=== PATIENT | male | born 1950 | race Caucasian/White ===

== ENCOUNTER 2019-03-05 18:38 | Inpatient (IN) | payer OTHER ==
[2019-03-05] MEDS ORDERED: ASPIRIN 81 MG CHEWABLE TAB PO ONE (18:39)
[2019-03-05] MEDS ORDERED: NS 1,000 ML IV ONE (18:39)
[2019-03-05] MEDS ORDERED: NITROGLYCERIN 0.4 MG BTL SL PRN ×2 (18:39→21:10)
--- NOTE | 2019-03-05 18:40 | EDPHY ---
H & P Time Seen by Provider: 03/05/19 18:40 HPI/ROS: HPI CHIEF COMPLAINT: Exertional chest pain. HISTORY OF PRESENT ILLNESS: This is a 68-year-old male, he has a history of hypertension, hyperlipidemia, obesity, presents emergency room with exertional chest pain. He states for the past few months he has noticed exertional chest discomfort. Describes it as a pressure sensation substernal not radiating anywhere. It is worse when he exerts himself. However over the last month he has noticed increasing exertional chest discomfort. Now to the point where it is constant her any time he goes walks up stairs. He denies any jaw pain, denies any back pain, denies any arm pain. He does have some dyspnea on exertion with this. No pleuritic pain. He went to his primary care doctor's office today who did an EKG and he was sent here to the emergency room for further evaluation. He arrives to the emergency room does have some slight 3/10 chest pressure. Past Medical History: Hypertension, hyperlipidemia, obesity Past Surgical History: Appendectomy Social History: Daily nightly wine, denies tobacco or drugs. Family History: Extensive cardiac disease in his family with an AL in his dad his age. ROS REVIEW OF SYSTEMS: 10 Systems were reviewed and negative with the exception of the elements mentioned in the history of present illness. Exam Constitutional triage nursing summary reviewed, vital signs reviewed, awake/ alert. Eyes normal conjunctivae and sclera, EOMI, PERRLA. HENT normal inspection, atraumatic, moist mucus membranes, no epistaxis, neck supple/ no meningismus, no raccoon eyes. Respiratory clear to auscultation bilaterally, normal breath sounds, no respiratory distress, no wheezing. Cardiovascular rate normal, regular rhythm, no murmur, no edema, distal pulses normal. Gastrointestinal soft, non-tender, no rebound, no guarding, normal bowel sounds, no distension, no pulsatile mass. Genitourinary no CVA tenderness. Musculoskeletal no midline vertebral tenderness, full range of motion, no calf swelling, no tenderness of extremities, no meningismus, good pulses, neurovascularly intact. Skin pink, warm, & dry, no rash, skin atraumatic. Neurologic awake, alert and oriented x 3, AAOx3, moves all 4 extremities equally, motor intact, sensory intact, CN II-XII intact, normal cerebellar, normal vision, normal speech. Psychiatric normal mood/affect. Heme/Lymph/Immune no lymphadenopathy. Differential Diagnosis: Differential diagnosis includes but is not limited to: ACS, atypical chest pain, pneumothorax, pneumonia, pulmonary embolism, aortic dissection, congestive heart failure, tumor, musculoskeletal pain, esophageal pain, GERD, peptic ulcer disease, pancreatitis Medical Decision Making: Plan for this patient IV establishment cardiac surgeon obtain EKG, troponin, electrolytes, chest x-ray, rule out acute coronary syndrome. Re-evaluation: EKG interpretation by me on record in [facility] system. Impression time of EKG 1847, sinus rhythm rate of 76, abnormal ischemic T-waves in leads V1 V2 V3 V4. Subtle in V5 slight ST depression in V2 V3. No ST elevation. Plan for this patient full cardiac surgeon, IV establishment, full-dose aspirin , nitroglycerin, admit to [facility]. 1903: Dr. Myles Consulted. Ekg for him to evaluate. Ekg has ischemic T waves, (?wellens) 1908: Spoke with Dr. Myles, agrees ekg is concerning, would not activate laboratory phlebotomist. Would admit to hospalist service. Admit for further cardiac eval. Plan for cardiac cath in am. Plan for heparin drip. Plan for admission to the hospitalist service PCU. Patient re-evaluated 1916 he was given 1 dose of nitroglycerin and full-dose aspirin. Is now without chest pain. Chest pain-free after nitroglycerin. Trop 0.01 Patient accepted at [facility] Dr. Camarillo Patient agrees for transfer. Repeat EKG: Time of EKG 1929, sinus rhythm again seen T-wave abnormalities V1 V2 V3 V4. No ST elevation. Similar previous EKG. Source: Patient - Medical/Surgical History Hx Diabetes: No - Social History Smoking Status: Former smoker Constitutional: Initial Vital Signs O2 Sat (%) 97 03/05/19 18:39 O2 Delivery Mode Room Air O2 (L/minute) 2 Allergies/Adverse Reactions: silicone Allergy (Verified 03/05/19 18:53) Rash Sulfa (Sulfonamide Antibiotics) Allergy (Verified 03/05/19 18:53) Anaphylaxis Home Medications: Medication Instructions Recorded Lisinopril [Zestril 20 mg (*)] 20 mg PO DAILY 03/24/16 Simvastatin [Zocor] 20 mg PO HS 03/24/16 Medical Decision Making - Data Points Medications Given: Aspirin (Aspirin) 325 mg PO DAILY [facility] Stop: 09/02/19 08:59 Last Admin: 03/06/19 08:31 Dose: Not Given Lisinopril (Zestril) 20 mg PO DAILY [facility] Stop: 09/02/19 08:59 Last Admin: 03/06/19 08:31 Dose: 20 mg Nitroglycerin (Nitrostat) 0.4 mg SL Q5M PRN PRN Reason: Chest Pain Last Admin: 03/05/19 19:04 Dose: 0.4 mg Discontinued Medications Aspirin (Aspirin) 324 mg PO EDNOW ONE Stop: 03/05/19 18:40 Last Admin: 03/05/19 19:03 Dose: 324 mg Aspirin Buffered (Aspirin Ec) 325 mg PO ONCALL ONE Stop: 03/06/19 08:13 Last Admin: 03/06/19 08:31 Dose: 325 mg Diazepam (Valium) 5 mg PO ONCALL ONE Stop: 03/06/19 08:13 Last Admin: 03/06/19 08:31 Dose: 5 mg Diphenhydramine HCl (Benadryl) 25 mg PO ONCALL ONE Stop: 03/06/19 08:13 Last Admin: 03/06/19 08:31 Dose: 25 mg Famotidine (Pepcid) 20 mg PO ONCALL ONE Stop: 03/06/19 08:13 Last Admin: 03/06/19 08:31 Dose: 20 mg Heparin Sodium (Porcine) (Heparin Injection) 0 unit IVP EDNOW ONE Stop: 03/05/19 19:09 Last Admin: 03/05/19 20:37 Dose: 4,000 units Sodium Chloride (Ns) 1,000 mls @ 0 mls/hr IV EDNOW ONE; Wide Open PRN Reason: Protocol Stop: 03/05/19 18:40 Last Admin: 03/05/19 19:02 Dose: 1,000 mls Heparin Sodium (Porcine) (Heparin 50 Units/Ml (Premix)) 500 mls @ 0 mls/hr IV EDNOW ONE; Per Protocol PRN Reason: Protocol Stop: 03/05/19 19:09 Last Admin: 03/05/19 20:49 Dose: 500 mls Lactated Ringer's (Lr) 1,000 mls @ 0 mls/hr IV ONCE ONE PRN Reason: KVO Stop: 03/06/19 12:57 Last Admin: 03/06/19 13:08 Dose: 1,000 mls Mupirocin (Bactroban 2%) 1 chad NS ONCE ONE Stop: 03/06/19 11:59 Last Admin: 03/06/19 13:04 Dose: 1 applic Point of Care Test Results: CBC CBC Collection Date 03/05/19 CBC Collection Time 18:51 WBC 6.86 RBC 4.61 HGB 16.1 HCT 46.4 PLT 176 Neut # 3.2 Neut 46.6 LYMPH # 2.54 LYMPH 37.0 MCV 100.7 Chemistry 03/05/19 03/05/19 18:56 18:54 POC Sodium 142 mEq/L mEq/L (135-145) POC Potassium 3.8 mEq/L mEq/L (3.3-5.0) POC Chloride 102.0 mEq/L mEq/L (97-110) POC Total CO2 26 mEq/L mEq/L (22-31) POC BUN 10 mg/dL mg/dL (7-23) POC Creatinine 0.6 mg/dL L mg/dL (0.7-1.3) POC Glucose 79 mg/dL mg/dL (70-100) POC Calcium 9.6 mg/dL mg/dL (8.5-10.4) POC Total Bilirubin 0.9 mg/dL mg/dL (0.1-1.4) POC AST 49 IU/L IU/L (17-59) POC ALT 39 IU/L IU/L (21-72) POC Alk Phosphatase 84 IU/L IU/L (38-126) POC Troponin I 0.01 ng/mL ng/mL (0.00-0.08) POC Total Protein 8.0 g/dL g/dL (6.3-8.2) POC Albumin 4.0 g/dL g/dL (3.5-5.0) Departure - Departure Disposition: [facility] Inpatient Acute Clinical Impression: Abnormal EKG Chest pain Qualifiers: Chest pain type: unspecified Qualified Code(s): R07.9 - Chest pain, unspecified Condition: Serious
[2019-03-05] MEDS: HEPARIN/DEXTROSE 500 ML IV ONE ×2 (19:41→20:49)
[2019-03-05] MEDS: HEPARIN 10,000 UNIT/10 ML MDV (1,000 UNIT/ML) IVP ONE ×2 (19:42→20:37)
[2019-03-05 20:44] LABS: INR 1.05 (0.83-1.16); PROTIME(PATIENT) 13.3 SEC (12.0-15.0)
[2019-03-05] MEDS ORDERED: ONDANSETRON DISINTEGRATING 4 MG TAB PO PRN (21:10)
[2019-03-05] MEDS ORDERED: ONDANSETRON 4 MG/2 ML VIAL IVP PRN (21:10)
[2019-03-05] MEDS ORDERED: ACETAMINOPHEN 325 MG TAB PO PRN (21:10)
--- NOTE | 2019-03-05 21:40 | PDGENHP ---
History and Physical - Chief Complaint chest pain - History of Present Illness 68 yo M with PMH of HTN, HLD, morbid obesity presenting with c/o chest pain for the last 4-5 months. Patient notes that he has had sxs that he believed were related to indigestion with substernal chest pressure occurring with exertion for months. He notes that it initially was only with relatively significant exertion, but would occur predictably anytime he exerted himself. Over the last several weeks it has begun occurring with less and less severe exertion, currently now occurs even with exertion as little as sitting up from lying down. He notes about 3 weeks ago he and his went to [place] and while there he was feeling much more fatigued than normal but at one time shortly after walking he developed this similar chest discomfort substernally but this time it was much more severe and associated with radiation to his left shoulder and arm, diaphoresis and a sense of doom. He sat for several hours and it finally subsided. He did not tell his how severe this episode was and did not seek care at that time. Today he presented to his PCP Dr. Marmolejo for evaluation of this and his PCP performed an ECG which was concerning for ischemia and he was sent to ER for further evaluation. He currently denies pain while at rest, but did sit up for me to listen to his lungs and the pain briefly returned. He notes he has also had swelling in his legs for quite some time and that is unchanged. He is normally very sedentary. History Information - Allergies/Home Medication List Allergies/Adverse Reactions: silicone Allergy (Verified 03/05/19 18:53) Rash Sulfa (Sulfonamide Antibiotics) Allergy (Verified 03/05/19 18:53) Anaphylaxis Home Medications: Lisinopril [Zestril 20 mg (*)] 20 mg PO DAILY 03/24/16 [Last Taken 03/05/19] Simvastatin [Zocor] 20 mg PO HS 03/24/16 [Last Taken 03/04/19] I have personally reviewed and updated: family history, medical history, social history, surgical history - Past Medical History hypertension, hyperlipidemia Additional medical history: morbid obesity - Surgical History Reports: appendectomy - Family History Positive for: CAD (father of [place] at 67, grandfather of [place]) - Social History Smoking Status: Current some day smoker Tobacco Use: Cigar (about 1x/month) Alcohol Use: Other (drinks daily 2 or more drinks, no hx of withdrawal, has cut down before w/o issues) Drug Use: None Additional social history: , 2 sons Review of Systems Review of Systems: ROS: 10pt was reviewed & negative except for what was stated in HPI & below Physical Exam Physical Exam: Temp Pulse Resp BP Pulse Ox 36.8 C 70 18 154/78 H 97 03/05/19 21:17 03/05/19 21:17 03/05/19 21:17 03/05/19 21:17 03/05/19 21:17 O2 (L/minute) 2 Constitutional: not in pain, obese Eyes: PERRL, anicteric sclera Ears, Nose, Mouth, Throat: moist mucous membranes, hearing normal Cardiovascular: regular rate and rhythym, no murmur, rub, or gallop, edema (1-2 + BLE to knees) Respiratory: no respiratory distress, no rales or rhonchi Gastrointestinal: normoactive bowel sounds, soft, non-tender abdomen Genitourinary: no bladder tenderness Skin: warm, normal color Musculoskeletal: full muscle strength Neurologic: AAOx3 Psychiatric: interacting appropriately, not anxious, not encephalopathic Lab Data & Imaging Review PT 13.3 SEC (12.0-15.0) 03/05/19 19:08 INR 1.05 (0.83-1.16) 03/05/19 19:08 APTT 32.4 SEC (23.0-38.0) 03/05/19 19:08 POC Sodium 142 mEq/L (135-145) 03/05/19 18:56 POC Potassium 3.8 mEq/L (3.3-5.0) 03/05/19 18:56 POC Chloride 102.0 mEq/L (97-110) 03/05/19 18:56 POC Total CO2 26 mEq/L (22-31) 03/05/19 18:56 POC BUN 10 mg/dL (7-23) 03/05/19 18:56 POC Creatinine 0.6 mg/dL (0.7-1.3) L 03/05/19 18:56 POC Glucose 79 mg/dL (70-100) 03/05/19 18:56 POC Calcium 9.6 mg/dL (8.5-10.4) 03/05/19 18:56 POC Total Bilirubin 0.9 mg/dL (0.1-1.4) 03/05/19 18:56 POC AST 49 IU/L (17-59) 03/05/19 18:56 POC ALT 39 IU/L (21-72) 03/05/19 18:56 POC Alk Phosphatase 84 IU/L (38-126) 03/05/19 18:56 POC Troponin I 0.01 ng/mL (0.00-0.08) 03/05/19 18:54 NT-Pro-B Natriuret Pep 45 pg/mL (0-125) 03/05/19 18:40 POC Total Protein 8.0 g/dL (6.3-8.2) 03/05/19 18:56 POC Albumin 4.0 g/dL (3.5-5.0) 03/05/19 18:56 Visualized and Interpreted Chest x-ray results: Yes Chest X-Ray results: no infiltrate Visualized and Interpreted EKG results: Yes EKG Interpretation: Positive for: ST depression (V3, V4, V5), T waves inversion Assessment & Plan Assessment: Chest pain (Acute) Abnormal EKG (Acute) 68 yo M hx of HTN, HLD, morbid obesity presenting with several months of exertional chest pain concerning for unstable angina # unstable angina: hx concerning for unstable angina given exertional chest pain that has been occurring with less and less exertion and ischemic ECG. Cardiology has been consulted and plans for cath in am. Currently chest pain free, will monitor on tele, serial trops and ecg, prn nitro. # HTN: currently appears poorly controlled however patient reports it is generally well controlled, will continue home lisinopril and monitor # HLD: continue statin, lipid panel in am # morbid obesity: counseled regarding lifestyle modification and exercise # observation status Patient new to my care. Old records reviewed and summarized as above. Further hx obtained from patients family present at bedside, care plan including plan for cath in am reviewed with ER doctor.
[2019-03-05] MEDS ORDERED: HEPARIN 10,000 UNIT/10 ML MDV (1,000 UNIT/ML) IVP PRN (23:19)
[2019-03-05] MEDS ORDERED: HEPARIN/DEXTROSE 500 ML IV SCH (23:30)
[2019-03-06] MEDS ORDERED: HEPARIN 10,000 UNIT/10 ML MDV (1,000 UNIT/ML) IVP PRN (00:32)
[2019-03-06] MEDS ORDERED: diphenhydrAMINE 25 MG CAP PO ONE (08:12)
[2019-03-06] MEDS ORDERED: TEMAZEPAM 15 MG CAP PO PRN (08:12)
[2019-03-06] MEDS ORDERED: ASPIRIN EC 325 MG TAB PO ONE (08:12)
[2019-03-06] MEDS ORDERED: FAMOTIDINE 20 MG TAB PO ONE (08:12)
[2019-03-06] MEDS ORDERED: DIAZEPAM 5 MG TAB PO ONE (08:12)
[2019-03-06] MEDS ORDERED: NS 1,000 ML IV SCH ×2 (08:15→18:15)
[2019-03-06 08:45] LABS: PLATELET COUNT 169 10^3/uL (150-400)
[2019-03-06] MEDS ORDERED: ASPIRIN 325 MG TAB PO SCH (09:00)
[2019-03-06] MEDS ORDERED: LISINOPRIL 20 MG TAB PO SCH (09:00)
--- NOTE | 2019-03-06 09:21 | GCON ---
[f rep st] CONSULTATION CARDIOLOGY CONSULTATION SUPERVISING SAAS ARCHITECT: Phu Lu MD INDICATION FOR CARDIOLOGY CONSULTATION: Exertional chest pain, concern for unstable angina. REQUESTING PHYSICIAN FOR CONSULTATION: Dr. Vimal Camarillo of [facility]. HISTORY OF PRESENT ILLNESS: The patient is a 68-year-old male, whose primary care is Dr. Marmolejo. Danny castro has significant past history that includes prediabetes, hypertension, hyperlipidemia, DON, and obes ity. Patient informs me since the beginning of this year, he has been noticing mild midsternal chest pressure, starting as faint, initially only starting with significant exertion, which dissipated. Danny castro does report over the last month the symptoms have worsened, stating that he now has a constant mild midsternal chest pressure, and with any exertion, it does significantly increase, does usually go aw ay. It has been noted to be occasionally associated with shortness of breath. He does inform me chad roximately 3 weeks ago, he was in [place], on vacation, he woke up in the morning, feeling significant ly fatigued, midsternal chest pressure, with radiation into his left arm, his checked his blood pressure at that time, reporting significant elevation, he was noted to have mild sweatiness and naus ea. He does report he did not seek medical treatment, but stated in about an hour and a half to 2 ho urs, symptoms dissipated. He reports he has had no extreme event since then, but does report ongoing exertional chest pressure. He did see Dr. Marmolejo last evening, his PCP, and had recommended him to come to the emergency department for further evaluation. Upon arrival, laboratory studies were draw n, he was noted to have a negative troponin of 0.01. Electrocardiogram was also done which noted to be sinus rhythm, leftward axis, with inverted T-waves in the anterior leads. He was admitted to the PCU for overnight. He has been started on a heparin drip. At the time of my examination, he reports he has still a mild heaviness, reporting midsternal, but rating at less than 1/10. Currently he den ies any shortness of breath. He reports no orthopnea, PND, lightheadedness, near-syncope, or syncopa l events. He does report he has chronic peripheral edema and feels that this has not worsened. He d enies any recent fevers, chills, or night sweats. Denies any bleeding issues. He has significant ca ia risk factors that include age, sex, hypertension, hyperlipidemia, prediabetes, family history o f coronary artery disease, which he reports father dying of an ME at age 67. PAST MEDICAL HISTORY: Patient with significant past medical history that includes DON in which he is on CPAP, hypertension, hyperlipidemia, and prediabetes. PAST SURGICAL HISTORY: Includes appendectomy,and spine surgery. FAMILY HISTORY: Patient reporting father of an ME at age 67. He also reports grandfather asa CARRIZALES. 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 He is . He has 2 children. He occasionally uses alcohol. He does state that he smokes 1 cigar a week but has never been a cigarette smoker. He has 2 children who are both alive and well. He does live a very s edentary lifestyle. ALLERGIES: Patient with known history of allergies to silicone and sulfa. MEDICATIONS: At home, include simvastatin 20 mg p.o. h.s., and lisinopril 20 mg p.o. daily. REVIEW OF SYSTEMS: A 10-point review of systems done on this patient all negative except as mentione d above. PHYSICAL EXAMINATION: GENERAL APPEARANCE: Morbidly obese, male. He is alert and oriented to person, place, time, and situation. Appears to be under no acute distress at the time of my exam ination. VITAL SIGNS: Current blood pressure is 153/80, heart rate of 64, respirations 16, saturati ng 95% on 2 L nasal cannula. Temperature at 36.9 degrees Celsius. HEENT: Head is normocephalic. L ips and tongue are pink and moist with no signs of cyanosis. Conjunctivae pink. NECK: Trachea is m idline, +2 carotid pulses bilateral. No auscultated bruits. No jugular vein distention. RESPIRATOR Y: Lungs are clear to auscultation, no rhonchi, rales, wheezes, no accessory muscle use. No interco stal muscle retraction noted. CARDIAC: Regular rate, regular rhythm, S1, S2, 1/6 systolic murmur no tavo along left sternal border. ABDOMEN: Soft, obese, nontender, bowel sounds x4 quadrants, no organ omegaly, no palpable masses. SKIN: [place], warm, dry, no cyanosis, no clubbing, +1 peripheral edema, bilateral lower extremities to knees. VASCULAR: +2 carotids bilateral, +2 radials bilateral, +1 saman truman pedal and posterior tibial pulses bilateral. LABORATORY STUDIES: Laboratory studies drawn last evening show an INR of 1.05, sodium of 142, potass ium 3.8, chloride 102, CO2 26, BUN 10, creatinine 0.6, glucose 79, calcium 9.6, total bilirubin 0.9, AST 49, ALT 39, alkaline phosphate 84, troponin of 0.01. ProBNP of 45. Total protein 8.0, albumin 4 .0. Laboratory studies drawn today showing troponin level less than 0.012. Triglycerides 61, total cholesterol 153, LDL of 71, HDL of 70. STUDIES: Electrocardiogram as mentioned above. Chest x-ray, showing no acute pulmonary disease. ASSESSMENT AND PLAN: 1. Chest pain: Concern patient reporting ongoing chest pain for last 3 months, worsening in the las t 3 weeks. Exertion, but does not sound like he has had a few symptoms at rest. Concerning that thi s potentially is unstable angina, with electrocardiogram changes. Given his multiple cardiac risk fa ctors, it is felt best that the patient be further evaluated by coronary angiogram. Risks and benefi ts of this procedure were explained to both him and his . They verbalize understanding. He will be taken urgently to the cardiac catheterization lab today, procedure performed by Dr. Lu. The patient has been started on antiplatelet therapy of aspirin, he is currently on heparin drip. [facility] er recommendations post angiogram. 2. Hypertension: Patient with noted history of hypertension, blood pressure is mildly elevated this morning, he has been resumed on home dosage of lisinopril. Pending results of angiogram, we made ad d medications pending results. 3. Hyperlipidemia: Patient noted history of hyperlipidemia, fasting lipid panel does show adequate suppression of the LDL, will continue on current dose of statin therapy. 4. Obstructive sleep apnea: Patient is using his home continuous positive airway pressure therapy. 5. Morbid obesity: We have discussed the significant importance of weight loss. Thank you for this consultation. We will be glad to follow along with you. Again, further recommend ations will come post angiogram. /[id number]/MODL
[2019-03-06] MEDS ORDERED: IOPAMIDOL (ISOVUE-370) 150 ML BTL IV ONE (09:26)
[2019-03-06] MEDS ORDERED: LIDOCAINE 1% 300 MG/30 ML SDV ONE ×2 (09:26→10:01)
[2019-03-06] MEDS ORDERED: fentaNYL 100 MCG/2 ML INJ ONE ×3 (09:26→12:38)
[2019-03-06] MEDS ORDERED: MIDAZOLAM 2 MG/2 ML VIAL ONE (09:26)
--- NOTE | 2019-03-06 09:43 | PDPROPOC ---
Sedation Plan of Care Sedation Plan of Care: mental status noted, patient educated of risks, benefits , alternatives, patient can tolerate sedation ASA Classification: ASA 3 Planned drugs: fentanyl, midazolam Mallampati Score: Class 3 Mallampati Reference Image: Patient passed 3-3-2 rule?: Yes
--- NOTE | 2019-03-06 09:43 | PDHPUP ---
History & Physical Update H&P update statement: This history and physical update is based on an assessment of the patient which was completed after admission or registration (within 24 hours), but prior to the surgery/procedure. H&P update: H&P reviewed & patient examined, no change in patient's condition since H&P completed
--- NOTE | 2019-03-06 09:51 | ECHO ---
[email or web address] [address] Main: [phone] Echocardiography Examination Transthoracic Name: NEENA SHEPHERD MR#: [id number] Study Date: 03/06/2019 Study Time: 08:51 AM Date of : 1950 Age: 68 year(s) Height: 175.3 cm (69 in.) Weight: 151.96 kg (335 lb.) BSA: 2.57 m2 Gender: Male Examination: Echo Contrast: Image Quality: Adequate Rhythm: Heart Rate: BP: / Indication: cp and SOB Procedure Staff Referring Physician: Feather Duster Winder: Aliyah Herrera RDCS Reading Physician: Phu Lu MD Requesting Provider: Ordering Physician: Sam Bunn NP Indication: cp and SOB Measurements Chambers AV/MV Label Value Normal Value Label Value Normal Value LVOTd 2.2 cm (1.9cm - 2.1cm) AV PGmax 9 mmHg LVOT VTI 23.6 cm (18cm - 22cm) AV PGmean 6 mmHg LVDd, 2D 5.3 cm (4.2cm - 5.9cm) AV Vmax 1.47 m/s LVDs, 2D 3.7 cm (2.1cm - 4cm) RAINER (VTI) 2.8 cm2 IVSd, 2D 1.1 cm (0.6cm - 1.1cm) MV E Vmax 0.61 m/s LVPWd, 2D 1.2 cm (0.6cm - 1cm) MV A Vmax 0.84 m/s LVEF, BP 63 % (55% - 70%) MV E/A 0.73 LVEF, 2D 57 % (54% - 74%) MV E/E' lateral 6.2 LVOT PGmean 3 mmHg MV E/E' septal 9.7 (0.45 - 1.25) LVOT Vmean 0.76 m/s MV DT 282 ms RVDd, 2D 3.4 cm (1.9cm - 3.8cm) MV E' septal 0.06 m/s LA Volume, BP 70 ml (18ml - 58ml) MV PHT 0.08 s LADs, 2D 3.7 cm (3cm - 4cm) MVA PHT 2.7 cm2 LAESV index, BP 27.2 ml/m2 MV E' lateral 0.1 m/s Additional Vessels MV E/E' mean 7.62 Label Value Normal Value MV PHT 82 ms AoAsc 3.8 cm MV E' mean 0.08 m/s AoRoot, 2D 3.6 cm (1.4cm - 2.6cm) TV/PV Label Value Normal Value Patient: NEENA SHEPHERD Study Date: 03/06/2019 Page 1 of 3 08:51 AM PV PGmax 2 mmHg PV Vmax, Caliper 0.75 m/s (0.6m/s - 0.9m/s) Conclusions Technically difficult due to body habitus, limited windows. Left Ventricle: EF range is estimated at 60 % - 65 %. Mitral Valve: Mitral valve appears structurally normal. Aortic Valve: Aortic valve not well visualized. Tricuspid Valve: Technically difficult assessment of tricuspid regurgitation. Findings Technically difficult due to body habitus, limited windows. Left Ventricle: Left ventricle is normal in size. Normal global systolic left ventricular function. The ejection fraction, measured by Simpsons method, is 63 %. EF range is estimated at 60 % - 65 %. There is mild concentric left ventricular hypertrophy. There are no regional wall motion abnormalities. Left ventricular diastolic function parameters are normal. Right Ventricle: Normal size right ventricle. Right ventricular systolic function is normal. Left Atrium: The left atrium is normal in size. Right Atrium: The right atrium is normal in size. Mitral Valve: Mitral valve appears structurally normal. Technically difficult assessment of mitral regurgitation. No mitral valve stenosis. Aortic Valve: Aortic valve not well visualized. Technically difficult assessment of aortic valve regurgitation. There is no aortic stenosis. Tricuspid Valve: Tricuspid valve leaflets are structurally normal. Technically difficult assessment of tricuspid regurgitation. Pulmonary artery pressure cannot be assessed due to inadequate TR signal. Pulmonic Valve: Pulmonic valve not well visualized. Aorta: The aortic root size in 2D measures 3.6 cm. The ascending aorta measures 3.8 cm. Aorta Measurements AoRoot, 2D is 3.6 cm. Pericardium: Subcostal technically difficult. No pericardial effusion. Exam Details Procedure Ordered: Echo Procedure Status: Routine study Image Quality: Adequate Facility Location: Cardiac Echo 1 Patient: NEENA SHEPHERD Study Date: 03/06/2019 Page 2 of 3 08:51 AM (No Signature Object) Patient: NEENA SHEPHERD Study Date: 03/06/2019 Page 3 of 3 08:51 AM [id number]
[2019-03-06] MEDS ORDERED: HYDROCODONE/APAP 5/325 TAB PO PRN (10:51)
[2019-03-06] MEDS ORDERED: ATROPINE SULFATE 1 MG/10 ML SYR IVP PRN (10:51)
[2019-03-06] MEDS ORDERED: HEPARIN/DEXTROSE 500 ML IV SCH (11:15)
--- NOTE | 2019-03-06 11:46 | ASMTCMCOM ---
CM Note CM Note Notes: Pt is a 68 y/o man admitted for a CABG. Needs are TBD at this time. CM to follow. Plan: TBD Date Signed: 03/06/2019 11:46 AM Electronically Signed By:CHELA Ling
[2019-03-06] MEDS ORDERED: LIDOCAINE 1% 2 ML INJ ID PRN (11:58)
[2019-03-06] MEDS ORDERED: MUPIROCIN 2% 22 GM OINT NS ONE (11:58)
[2019-03-06] MEDS ORDERED: MANNITOL 25% 12.5 GM/50 ML VIAL IVP ONE (11:58)
[2019-03-06] MEDS ORDERED: CITRATE DEXTROSE SOLN 500 ML BAG MISC ONE (11:58)
[2019-03-06] MEDS ORDERED: CARDIOPLEGIC SOLUTION 1,052.8 ML PF ONE (11:58)
[2019-03-06] MEDS ORDERED: ceFAZolin 3 GM in D5W 100 ML IV ONE (11:58)
[2019-03-06] MEDS ORDERED: AMINOCAPROIC ACID 5 GM/20 ML VIAL IV ONE (11:58)
[2019-03-06] MEDS ORDERED: NS 1,000 ML IV ONE (11:58)
[2019-03-06] MEDS ORDERED: NOREPINEPHRINE BITARTRATE 16 MG in NS 250 ML IV ONE (11:58)
[2019-03-06] MEDS ORDERED: VERAPAMIL 5 MG, NITROGLYCERIN 2.5 MG, HEPARIN 500 UNIT, SODIUM BICARBONATE 0.2 MEQ in L... MISC ONE (11:58)
[2019-03-06] MEDS ORDERED: PHENYLEPHRINE HCL 50 MG in NS 250 ML IV ONE (11:58)
[2019-03-06] MEDS ORDERED: INSULIN REGULAR HUMAN 100 UNIT in NS 100 ML IV ONE (11:58)
[2019-03-06] MEDS ORDERED: PROTAMINE SULFATE 50 MG/5 ML VIAL IVP ONE (12:01)
[2019-03-06] MEDS ORDERED: CALCIUM CHLORIDE 1 GM/10 ML INJ ONE ×2 (12:02→12:03)
[2019-03-06] MEDS ORDERED: NA BICARBONATE 50 MEQ/50 ML VIAL ONE (12:02)
[2019-03-06] MEDS ORDERED: ceFAZolin 1 GM VIAL ONE (12:02)
[2019-03-06] MEDS ORDERED: AMIODARONE HCL 150 MG/3 ML VIAL ONE ×2 (12:02→12:04)
[2019-03-06] MEDS ORDERED: ADENOSINE 6 MG/2 ML VIAL ONE (12:02)
[2019-03-06] MEDS ORDERED: niCARdipine/NACL/200 ML BAG IV ONE (12:02)
[2019-03-06] MEDS ORDERED: AMINOCAPROIC ACID 5 GM/20 ML VIAL ONE ×2 (12:02→12:03)
[2019-03-06] MEDS ORDERED: MILRINONE/DEXTROSE/100 ML BAG IV ONE (12:02)
[2019-03-06] MEDS ORDERED: NITROGLYCERIN/D5W 50 MG/250 ML BOTTLE IV ONE (12:02)
[2019-03-06] MEDS ORDERED: DOPamine/DEXTROSE 400 MG/250 ML BAG IV ONE (12:02)
[2019-03-06] MEDS ORDERED: HEPARIN 10,000 UNIT/10 ML MDV (1,000 UNIT/ML) ONE ×2 (12:02→12:03)
[2019-03-06] MEDS ORDERED: ALBUMIN 5% 250 ML BOTTLE IV ONE ×3 (12:03→23:20)
[2019-03-06] MEDS ORDERED: LIDOCAINE 2% 100 MG/5 ML SYR ONE (12:03)
[2019-03-06] MEDS ORDERED: SODIUM BICARBONATE 50 MEQ/50 ML SYR ONE (12:03)
[2019-03-06] MEDS ORDERED: MAGNESIUM SULFATE 1 GM/2 ML VIAL ONE (12:04)
[2019-03-06] MEDS ORDERED: CITRATE DEXTROSE SOLN 500 ML BAG ONE (12:04)
[2019-03-06] MEDS ORDERED: methylPREDNISolone SOD SUCC 1 GM/8 ML VIAL ONE (12:04)
[2019-03-06] MEDS ORDERED: MIDAZOLAM 2 MG/2 ML VIAL IVP ONE (12:29)
--- NOTE | 2019-03-06 12:29 | PDANEPAE ---
ANE History of Present Illness 68 yo for urgent cabg ANE Past Medical History - Cardiovascular History Hx Hypertension: Yes Hx Arrhythmias: No Hx Chest Pain: Yes Hx Coronary Artery / Peripheral Vascular Disease: Yes Hx CHF / Valvular Disease: No Hx Palpitations: No - Pulmonary History Hx COPD: No Hx Asthma/Reactive Airway Disease: No Hx Recent Upper Respiratory Infection: No Hx Oxygen in Use at Home: No Hx Sleep Apnea: Yes Sleep Apnea Screening Result - Last Documented: Positive Pulmonary History Comment: CPAP FOR DON - Neurologic History Hx Cerebrovascular Accident: No Hx Seizures: No Hx Dementia: No - Endocrine History Hx Diabetes: No - Renal History Hx Renal Disorders: No - Liver History Hx Hepatic Disorders: No - Neurological & Psychiatric Hx Hx Neurological and Psychiatric Disorders: No - Cancer History Hx Cancer: No - Congenital Disorder History Hx Congenital Disorders: No - GI History Hx Gastrointestinal Disorders: No - Other Health History Other Health History: HIGH CHOLESTEROL. MISSING TEETH - Chronic Pain History Chronic Pain: No - Surgical History Prior Surgeries: APPY. LYSIS OF ADHESION ANE Review of Systems Review of Systems: - Exercise capacity METS (RN): 3 METS ANE Patient History - Allergies Allergies/Adverse Reactions: silicone Allergy (Verified 03/05/19 18:53) Rash Sulfa (Sulfonamide Antibiotics) Allergy (Verified 03/05/19 18:53) Anaphylaxis - Home Medications Home Medications: Lisinopril [Zestril 20 mg (*)] 20 mg PO DAILY 03/24/16 [Last Taken 03/05/19] Simvastatin [Zocor] 20 mg PO HS 03/24/16 [Last Taken 03/04/19] - NPO status NPO Status: no food or drink >8 hours NPO Since - Liquids (Date): 03/06/19 NPO Since - Liquids (Time): 00:00 NPO Since - Solids (Date): 03/06/19 NPO Since - Solids (Time): 00:00 - Anes Hx Anes Hx: no prior problems - Smoking Hx Smoking Status: Current some day smoker - Alcohol Use Alcohol Use: Other (drinks daily 2 or more drinks, no hx of withdrawal, has cut down before w/o issues) ANE Labs/Vital Signs - Labs Result Diagrams: 03/06/19 08:37 - Vital Signs Blood Pressure: 153/80 Heart Rate: 64 Respiratory Rate: 16 O2 Sat (%): 95 Height: 5 ft 9 in Weight: 151.953 kg ANE Physical Exam - Airway Neck exam: FROM Mallampati Score: Class 2 Mouth exam: normal dental/mouth exam - Pulmonary Pulmonary: no respiratory distress - Cardiovascular Cardiovascular: regular rate and rhythym - ASA Status ASA Status: IV, E ANE Anesthesia Plan Anesthesia Plan: general endotracheal anesthesia Lines/Monitors: arterial line, central line, HELEN Specialized Airway: video laryngoscope
[2019-03-06] MEDS ORDERED: DEXMEDETOMIDINE HCL 400 MCG in NS 100 ML IV SCH (12:30)
[2019-03-06] MEDS ORDERED: REMIFENTANIL HCL 1 MG VIAL ONE (12:38)
[2019-03-06] MEDS ORDERED: PROPOFOL/EMULSION 500 MG/50 ML BOTTLE IV ONE ×2 (12:39→15:40)
[2019-03-06] MEDS ORDERED: ROCURONIUM 100 MG/10 ML VIAL ONE ×2 (12:41→15:23)
[2019-03-06] MEDS ORDERED: PHENYLEPHRINE HCL 100 MCG/ML SYR ONE (12:42)
[2019-03-06] MEDS ORDERED: ePHEDrine SULFATE 25 MG/5 ML SYR ONE (12:42)
[2019-03-06] MEDS ORDERED: MINERAL OIL 10 ML VIAL ONE (12:44)
[2019-03-06] MEDS ORDERED: PAPAVERINE HCL 60 MG/2 ML SDV ONE (12:44)
[2019-03-06] MEDS ORDERED: VERAPAMIL 5 MG/2 ML VIAL ONE (12:45)
--- NOTE | 2019-03-06 12:54 | PDCONSULT ---
Cremator Note: INDICATION FOR CTS CONSULTATION: Severe 3VD including LM REQUESTING PHYSICIAN FOR CONSULTATION: Dr. Lu HISTORY OF PRESENT ILLNESS: The patient is a 68M w history of prediabetes, hypertension, hyperlipidemia, DON, and morbid obesity who has been having exertional chest pressure for the past few months. These symptoms have worsened in severity and frequency. Associated symptoms include SOB, fatigue, diaphoresis, and nausea. His PCP instructed him to go to the ER. Troponin was negative 0.01 and EKG was sinus rhythm, leftward axis, with inverted T-waves in the anterior leads. He was admitted to the PCU for overnight and started on a heparin drip. He continued to have mild midsternal pain and given his significant risk factors, he went for cardiac catheterization which demonstrated severe 3V disease including LM. He is right hand dominant. PAST MEDICAL HISTORY: Morbid obesity, DON in which he is on CPAP, hypertension , hyperlipidemia, and prediabetes PAST SURGICAL HISTORY: Includes appendectomy, spine surgery, left knee scope. No LE vein or arm surgeries. FAMILY HISTORY: Patient reporting father of an UT at age 67. He also reports grandfather having UT. 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 He is . He has 2 children. He occasionally uses alcohol. He does state that he smokes 1 cigar a week but has never been a cigarette smoker. He has 2 children who are both alive and well. He does live a very sedentary lifestyle. MEDICATIONS: At home, include simvastatin 20 mg p.o. h.s., and lisinopril 20 mg p.o. daily. REVIEW OF SYSTEMS: A 2-9-point review of systems done on this patient all negative except as mentioned above. PHYSICAL EXAMINATION: GENERAL APPEARANCE: Morbidly obese, male. HEENT: Head is normocephalic. Lips and tongue are pink and moist with no signs of cyanosis. Conjunctivae pink. RESPIRATORY: No audible wheezes. No Accessory muscle use. No intercostal muscle retraction noted. CARDIAC: Regular rate, regular rhythm, S1, S2, +1 peripheral edema ABDOMEN: Soft, obese, nontender SKIN: [place], warm, dry, no cyanosis, no clubbing LABORATORY STUDIES: INR of 1.05, sodium of 142, potassium 3.8, chloride 102, CO2 26, BUN 10, creatinine 0.6, glucose 79, calcium 9.6, total bilirubin 0.9, AST 49, ALT 39, alkaline phosphate 84, troponin of 0.01. ProBNP of 45. Total protein 8.0, albumin 4.0. Triglycerides 61, total cholesterol 153, LDL of 71, HDL of 70. DIAGNOSTICS: LHC with severe 3VD w LM. CUS negative for stenosis. TTE EF 60-65 % wo RWMA or valvular disease. Electrocardiogram as mentioned above. Chest x- ray WNL. ASSESSMENT: Severe 3V CAD with LM Unstable angina Hypertension Hyperlipidemia Obstructive sleep apnea on CPAP Morbid obesity Prediabetes Right-hand dominant PLAN: Urgent myocardial revascularization with endoscopic vein harvesting and open radial artery harvest Risks, benefits, and alternatives discussed with patient Consent obtained, pre-ops placed
[2019-03-06] MEDS ORDERED: LR 1,000 ML IV ONE (12:56)
--- NOTE | 2019-03-06 13:35 | CPEKG ---
Test Reason : OPEN Blood Pressure : / mmHG Vent. Rate : 066 BPM Atrial Rate : 066 BPM P-R Int : 171 ms QRS Dur : 116 ms QT Int : 447 ms P-R-T Axes : 036 -21 076 degrees QTc Int : 469 ms Sinus rhythm Nonspecific intraventricular conduction delay Nonspecific T abnrm, anterolateral leads Confirmed by Yoly Ferris ([id number]) on 03/06/2019 1:35:14 PM Referred By: Shaji Platt Confirmed By:Yoly Ferris
--- NOTE | 2019-03-06 13:36 | CPEKG ---
Test Reason : OPEN Blood Pressure : / mmHG Vent. Rate : 076 BPM Atrial Rate : 076 BPM P-R Int : 172 ms QRS Dur : 113 ms QT Int : 425 ms P-R-T Axes : 041 -29 069 degrees QTc Int : 478 ms Sinus rhythm Abnormal T, consider ischemia, anterior leads Confirmed by Yoly Ferris ([id number]) on 03/06/2019 1:36:07 PM Referred By: Shaji Platt Confirmed By:Yoly Ferris
[2019-03-06] MEDS ORDERED: SUFentanil 250 MCG/5 ML AMP ONE (14:11)
--- NOTE | 2019-03-06 15:25 | PDMN ---
Medical Necessity Medical necessity: [facility] S390 CABG 4 days; INPT only: 68 yo M morbidly obese, with complaints of CP, SOB, fatigue, diaphoresis, N, - went for cardiac cath and found to have severe 3 Vessel disease including LM. Plan urgent myocardial revascularization OP: CABG X 4
--- NOTE | 2019-03-06 17:43 | HOSPPROG ---
Hospitalist Progress Note Assessment/Plan: DIAGNOSES: * Unstable angina, has rule out for myocardial infarction * Diffuse coronary artery disease * Hypertension * Hyperlipidemia Overnight the patient continues to have some mild angina symptoms at rest. On angiogram today he has diffuse coronary disease and recommendations have been for surgery. PLANS: * Patient will go to open heart surgery for coronary bypass today * Will data assistant following his sugars postop * He will need ongoing monitoring of blood pressures in lipids and management of those in here as well as outpatient setting SUBJECTIVE: Still some mild angina symptom overnight OBJECTIVE Vitals reviewed: Mildly hypertensive otherwise stable without fever Strategic Alliances Manager, my review: Sinus Exam: alert oriented skin warm dry color ok resps not labored lungs clear BSs heart regular abd soft nondistended nontender, bowel sounds present limbs warm, no edema iv site ok Lab data: Troponins negative Objective: Vital Signs Temp Pulse Resp BP Pulse Ox 36.9 C 64 16 153/80 H 95 03/06/19 07:17 03/06/19 12:29 03/06/19 12:29 03/06/19 12:29 03/06/19 12:29 PT 13.3 SEC (12.0-15.0) 03/05/19 19:08 INR 1.05 (0.83-1.16) 03/05/19 19:08 ICD10 Worksheet Patient Problems: Problems Problem Status Onset Abnormal EKG Acute Chest pain Acute
[2019-03-06] MEDS ORDERED: METOCLOPRAMIDE 10 MG/2 ML VIAL IVP PRN (18:07)
[2019-03-06] MEDS ORDERED: D50W 25 GM/50 ML SYR IVP PRN (18:07)
[2019-03-06] MEDS ORDERED: MAGNESIUM HYDROXIDE 30 ML UDCUP PO PRN (18:07)
[2019-03-06] MEDS ORDERED: POLYETHYLENE GLYCOL 3350 17 GM PKT PO PRN (18:07)
[2019-03-06] MEDS ORDERED: ONDANSETRON DISINTEGRATING 4 MG TAB PO PRN (18:07)
[2019-03-06] MEDS ORDERED: ACETAMINOPHEN 650 MG SUPP PR PRN (18:07)
[2019-03-06] MEDS ORDERED: CEPACOL LOZENGE PO PRN (18:07)
[2019-03-06] MEDS ORDERED: ACETAMINOPHEN 325 MG TAB PO PRN (18:07)
[2019-03-06] MEDS ORDERED: BISACODYL 10 MG SUPP PR PRN (18:07)
[2019-03-06] MEDS ORDERED: LACTULOSE 20 GM/30 ML UDCUP PO PRN (18:07)
[2019-03-06] MEDS ORDERED: PANTOPRAZOLE SODIUM 40 MG VIAL IVP ONE (18:07)
[2019-03-06] MEDS ORDERED: ONDANSETRON 4 MG/2 ML VIAL IVP PRN (18:07)
[2019-03-06] MEDS ORDERED: POTASSIUM Cl (KCl) 50 ML IV PRN (18:07)
[2019-03-06] MEDS ORDERED: fentaNYL 100 MCG/2 ML INJ IVP PRN (18:07)
[2019-03-06] MEDS ORDERED: MEPERIDINE 25 MG/0.5 ML AMP IVP PRN (18:07)
[2019-03-06] MEDS ORDERED: SODIUM CL NASAL 45 ML BTL EACHNARE PRN (18:07)
[2019-03-06] MEDS ORDERED: INSULIN REGULAR HUMAN 100 UNIT in NS 100 ML IV SCH (18:30)
[2019-03-06] MEDS ORDERED: NITROGLYCERIN/DEXTROSE 250 ML IV SCH (18:30)
[2019-03-06] MEDS: ALBUMIN 5% 250 ML IV PRN ×2 (18:45→19:14)
--- NOTE | 2019-03-06 18:49 | GOP ---
[f rep st] OPERATIVE REPORT DATE OF OPERATION: 03/06/2019 SURGEON: Lee Stevenson DO PROCESSES CHEMICAL DESIGN ENGINEER: Suraj Christianson PA-C, and Rudolph Dominguez P.A.-c PREOPERATIVE DIAGNOSIS: 1. Unstable angina pectoris with critical 3-vessel coronary artery disease and preserved left ventri cular function. 2. Super morbid obesity. 3. Prediabetic. POSTOPERATIVE DIAGNOSIS: 1. Unstable angina pectoris with critical 3-vessel coronary artery disease and preserved left ventri cular function. 2. Super morbid obesity. 3. Prediabetic. PROCEDURE PERFORMED: 1. Emergent coronary bypass grafting x4 with left internal mammary artery to the ramus, right internet marketing strategist al mammary artery to the LAD, left radial artery to the posterior lateral circumflex, and saphenous v ein graft to the RCA. 2. Ligation of left atrial appendage with #40 atrial clip. 3. Harvesting of left radial artery with a Harmonic scalpel. 4. Endoscopic vein harvest. FINDINGS: DESCRIPTION OF PROCEDURE: Patient was brought to the catheterization lab, hemodynamically stable wit h critical left main and 3-vessel disease. He was intubated. Monitoring lines were placed. He was prepped and draped in sterile classical manner. Sternotomy was performed. Both mammary arteries wer e harvested while the vein and left radial were harvested by the Rudolph Dominguez utilizing a Harmonic sc alpel. Doppler signals were maintained with occluding the vessel prior to resecting it. The palmar arch was intact. Both mammary arteries and all conduits were excellent. He was the cannulated in th e standard fashion. Bypass was begun. A cardioplegic arrest was obtained with [place] protocol wit h antegrade cardioplegia and topical hypothermia, as well as systemic cooling. Initially, the posterior lateral circumflex, which was 1.8 mm vessel was grafted with an excellent qu ality radial artery, which was brought off the ascending aorta with a continuous running 6-0 Prolene. We then placed the left internal mammary artery to a large 4 mm ramus branch, which was an excellen t quality vessel, tacking it to the epicardium. We then grafted the LAD with the right internal thor acic artery, which was an excellent quality vessel, as well as the LAD. While rewarming was begun, we occluded the left atrial appendage with a 40 mm clip and grafted the di stal right coronary artery prior to the bifurcation. This was a heavily calcified, poor quality vess el with a venous conduit, which was then brought off the ascending aorta. The cross-clamp was removed with suction on the ascending aortic vent. Spontaneous cardiac activity was noted to resume. The patient was rewarmed, weaned from bypass. Heparin was reversed with protam ine. Cannula was removed and oversewn. Two ventricular pacing wires, 2 pleural and [address] ain were placed. The thymic fat and pericardium were closed. Chest was closed in standard fashion. Patient was returned to ICU in stable condition. /[id number]/MODL
[2019-03-06] MEDS ORDERED: NOREPINEPHRINE BITARTRATE 16 MG in NS 250 ML IV SCH (19:30)
--- NOTE | 2019-03-06 20:18 | CPEKG ---
Test Reason : OPEN Blood Pressure : / mmHG Vent. Rate : 071 BPM Atrial Rate : 071 BPM P-R Int : 170 ms QRS Dur : 106 ms QT Int : 459 ms P-R-T Axes : 057 078 108 degrees QTc Int : 499 ms Sinus rhythm Inferior infarct, old Abnrm T, consider ischemia, anterolateral lds Confirmed by Hugo Marsh ([id number]) on 03/06/2019 8:17:15 PM Referred By: Lee Stevenson Confirmed By:Hugo Marsh
[2019-03-06] MEDS: FAMOTIDINE 20 MG/NACL 50 ML IV SCH (20:50)
[2019-03-06] MEDS: MUPIROCIN 2% 22 GM OINT NS SCH (20:50)
[2019-03-06] MEDS ORDERED: ATORVASTATIN CALCIUM 10 MG TAB PO SCH (21:00)
[2019-03-06] MEDS: CHLORHEXIDINE GLUCONATE 15 ML UDL PO SCH (21:35)
[2019-03-06] MEDS: ceFAZolin 2 GM/DEXTROSE 100 ML IV SCH (21:36)
[2019-03-06] MEDS ORDERED: ALBUMIN 5% 250 ML IV ONE (23:30)
[2019-03-07] MEDS: HYDROCODONE/APAP 5/325 TAB PO PRN ×4 (01:00→21:04)
[2019-03-07 05:36] LABS: PLATELET COUNT 105 10^3/uL (150-400)
[2019-03-07] MEDS: HEPARIN 5,000 UNIT/0.5 ML INJ SC SCH ×3 (06:19→22:27)
[2019-03-07] MEDS: ceFAZolin 2 GM/DEXTROSE 100 ML IV SCH ×3 (06:19→22:26)
[2019-03-07] MEDS ORDERED: ALBUMIN 5% 250 ML BOTTLE IV ONE (07:37)
[2019-03-07] MEDS ORDERED: ALBUMIN 5% 250 ML IV ONE (07:42)
--- NOTE | 2019-03-07 07:49 | SOAPPROG ---
SOAP Progress Note Assessment/Plan: POD #1: emergent CABGx4 (AMADOR-ramus, YONG-LAD, LRA-PL circ, SVG-RCA), AtriClip BRITTANY, open L radial artery harvest, EVH left thigh saphenous vein Unstable angina, critical CAD s/p emergent CABGx4 - AL/FC out, CTs to bulb suction - BB/ASA/statin for secondary prevention when appropriate Acute post-op blood loss anemia - Stable, no transfusions needed DON secondary to morbid obesity - CPAP ordered DVT prophylaxis - SCDs/heparin SQ Disposition - PCU Subjective: Pt c/o incisional CP with inability to take deep breaths. Left hand is numb at times. Objective: Vital Signs Temp Pulse Resp BP Pulse Ox 38 C 73 30 H 105/58 L 93 03/07/19 06:00 03/07/19 06:00 03/07/19 06:00 03/07/19 06:00 03/07/19 06:00 Laboratory Results 03/07/19 04:48 03/07/19 04:48 03/06/19 03/07/19 03/08/19 05:59 05:59 05:59 Intake Total 1741 Output Total 1310 Balance 431 PT 13.3 SEC (12.0-15.0) 03/05/19 19:08 INR 1.05 (0.83-1.16) 03/05/19 19:08 Physical Exam - Physical Exam General Appearance: WD/WN, alert, no apparent distress, obese EENT: No scleral icterus (R), No scleral icterus (L) Neck: normal inspection Respiratory: No respiratory distress Cardiac/Chest: regular rate, rhythm Abdomen: non-tender, soft, No distended Skin: normal color, warm/dry Extremities: other (left hand neurologically intact), No pedal edema Neuro/Psych: no motor/sensory deficits, alert, normal mood/affect, oriented x 3 ICD10 Worksheet Patient Problems: Problems Problem Status Onset Abnormal EKG Acute Acute blood loss anemia Acute Chest pain Acute S/P CABG x 4 Acute S/P left atrial appendage ligation Acute
[2019-03-07] MEDS: FAMOTIDINE 20 MG/NACL 50 ML IV SCH (08:31)
[2019-03-07] MEDS: MUPIROCIN 2% 22 GM OINT NS SCH ×2 (09:06→22:02)
[2019-03-07] MEDS: CHLORHEXIDINE GLUCONATE 15 ML UDL PO SCH (09:32)
[2019-03-07] MEDS ORDERED: KETOROLAC 30 MG/1 ML SDV IVP ONE (10:00)
--- NOTE | 2019-03-07 13:31 | ASMTCMCOM ---
CM Note CM Note Notes: Patient had a coronary artery bypass graft x4 today. Most likely will transfer to PCU today. PT/OT have been ordered. CM will follow. Date Signed: 03/07/2019 01:30 PM Electronically Signed By:Shruthi Hussein LCSW
[2019-03-07] MEDS: traMADol 50 MG TAB PO PRN (16:04)
--- NOTE | 2019-03-07 17:08 | HOSPPROG ---
Hospitalist Progress Note Assessment/Plan: DIAGNOSES: * Unstable angina, has rule out for myocardial infarction * Diffuse coronary artery disease * Hypertension * Hyperlipidemia Overnight the patient continues to have some mild angina symptoms at rest. On angiogram today he has diffuse coronary disease and recommendations have been for surgery. PLANS: * will continue to follow sugars SUBJECTIVE: expected post op pain has been up on feet with staff assisting has been off insulin drip today OBJECTIVE Vitals reviewed: all stable without fever Interior Wall Assembler, my review: Sinus Exam: alert oriented skin warm dry color ok resps not labored lungs clear BSs heart regular abd soft nondistended nontender, bowel sounds present limbs warm, no edema Lab data: glucose remains in good range so far stable Hg lytes and renal fxn Objective: Vital Signs Temp Pulse Resp BP Pulse Ox 37.4 C 82 27 H 115/82 H 95 03/07/19 08:00 03/07/19 16:00 03/07/19 16:00 03/07/19 16:00 03/07/19 16:00 Laboratory Results 03/07/19 04:48 03/07/19 13:50 03/06/19 03/07/19 03/08/19 06:59 06:59 06:59 Intake Total 1741 1110 Output Total 1310 125 Balance 431 985 PT 13.3 SEC (12.0-15.0) 03/05/19 19:08 INR 1.05 (0.83-1.16) 03/05/19 19:08 ICD10 Worksheet Patient Problems: Problems Problem Status Onset Abnormal EKG Acute Acute blood loss anemia Acute Chest pain Acute S/P CABG x 4 Acute S/P left atrial appendage ligation Acute
[2019-03-07] MEDS: PANTOPRAZOLE SODIUM 40 MG TAB PO SCH (17:43)
[2019-03-07] MEDS: ASPIRIN 81 MG CHEWABLE TAB PO SCH (17:43)
[2019-03-07] MEDS ORDERED: ASPIRIN 81 MG CHEWABLE TAB TUBE PRN (18:07)
[2019-03-07] MEDS: SENNOSIDES/DOCUSATE SODIUM TAB PO SCH (21:04)
[2019-03-08] MEDS: HYDROCODONE/APAP 5/325 TAB PO PRN ×3 (02:17→13:50)
[2019-03-08] MEDS: traMADol 50 MG TAB PO PRN (03:40)
[2019-03-08 04:23] LABS: PLATELET COUNT 98 10^3/uL (150-400)
[2019-03-08] MEDS: HEPARIN 5,000 UNIT/0.5 ML INJ SC SCH ×3 (04:49→19:58)
[2019-03-08] MEDS: ceFAZolin 2 GM/DEXTROSE 100 ML IV SCH (06:04)
--- NOTE | 2019-03-08 06:56 | SOAPPROG ---
SOAP Progress Note Assessment/Plan: POD #2: emergent CABGx4 (AMADOR-ramus, YONG-LAD, LRA-PL circ, SVG-RCA), AtriClip BRITTANY, open L radial artery harvest, EVH left thigh saphenous vein Unstable angina, critical CAD s/p emergent CABGx4 - AL/FC out, CTx3 with total output of 420 mL - transfer to bulb suction vs removal as per Dr. Stevenson - BB/ASA/statin for secondary prevention when appropriate - Adjunctive CCB x 90 days for RA graft spasm prophylaxis Acute post-op blood loss anemia - Stable, no transfusions needed DON secondary to morbid obesity - CPAP ordered DVT prophylaxis - SCDs/heparin SQ Disposition - PCU Subjective: Difficulty with taking deep breaths d/t pain. Relief of incisional pain with narcotics. Left hand without paresthesias. Objective: Vital Signs Temp Pulse Resp BP Pulse Ox 37.4 C 97 30 H 144/91 H 90 L 03/08/19 04:00 03/08/19 04:00 03/08/19 04:00 03/08/19 04:00 03/08/19 04:00 Laboratory Results 03/08/19 04:10 03/08/19 04:10 03/07/19 03/08/19 03/09/19 05:59 05:59 05:59 Intake Total 1741 2160 Output Total 1310 945 Balance 431 1215 PT 13.3 SEC (12.0-15.0) 03/05/19 19:08 INR 1.05 (0.83-1.16) 03/05/19 19:08 Physical Exam - Physical Exam General Appearance: WD/WN, alert, no apparent distress, obese EENT: No scleral icterus (R), No scleral icterus (L) Neck: normal inspection Respiratory: pain on movement Cardiac/Chest: regular rate, rhythm Abdomen: non-tender, soft, No distended Skin: normal color, warm/dry Extremities: pedal edema Neuro/Psych: no motor/sensory deficits, alert, normal mood/affect, oriented x 3 ICD10 Worksheet Patient Problems: Problems Problem Status Onset Abnormal EKG Acute Acute blood loss anemia Acute Chest pain Acute S/P CABG x 4 Acute S/P left atrial appendage ligation Acute
[2019-03-08] MEDS ORDERED: KETOROLAC 30 MG/1 ML SDV IVP ONE (07:15)
[2019-03-08] MEDS ORDERED: oxyCODONE IR 5 MG TAB PO PRN (07:37)
[2019-03-08] MEDS: SENNOSIDES/DOCUSATE SODIUM TAB PO SCH ×2 (09:53→20:48)
[2019-03-08] MEDS: PANTOPRAZOLE SODIUM 40 MG TAB PO SCH (09:54)
[2019-03-08] MEDS: ASPIRIN 81 MG CHEWABLE TAB PO SCH (09:54)
[2019-03-08] MEDS: METOPROLOL TARTRATE 25 MG TAB PO SCH ×2 (09:54→20:48)
[2019-03-08] MEDS: MUPIROCIN 2% 22 GM OINT NS SCH (09:55)
--- NOTE | 2019-03-08 18:30 | HOSPPROG ---
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, my review: Sinus Exam: alert oriented relaxed and talkative skin warm dry color ok resps not labored Lab data: glucose remains in good range so far Objective: Vital Signs Temp Pulse Resp BP Pulse Ox 36.8 C 78 20 100/71 97 03/08/19 15:36 03/08/19 15:36 03/08/19 15:36 03/08/19 15:36 03/08/19 15:36 Laboratory Results 03/08/19 04:10 03/08/19 04:10 03/07/19 03/08/19 03/09/19 06:59 06:59 06:59 Intake Total 1741 2160 1050 Output Total 1310 945 725 Balance 431 1215 325 PT 13.3 SEC (12.0-15.0) 03/05/19 19:08 INR 1.05 (0.83-1.16) 03/05/19 19:08 ICD10 Worksheet Patient Problems: Problems Problem Status Onset Abnormal EKG Acute Acute blood loss anemia Acute Chest pain Acute S/P CABG x 4 Acute S/P left atrial appendage ligation Acute
[2019-03-09] MEDS: HEPARIN 5,000 UNIT/0.5 ML INJ SC SCH ×3 (05:44→21:14)
[2019-03-09] MEDS: HYDROCODONE/APAP 5/325 TAB PO PRN (05:48)
[2019-03-09] MEDS: traMADol 50 MG TAB PO PRN (08:11)
[2019-03-09] MEDS: METOPROLOL TARTRATE 25 MG TAB PO SCH ×2 (08:11→21:13)
[2019-03-09] MEDS: ASPIRIN 81 MG CHEWABLE TAB PO SCH (08:11)
[2019-03-09] MEDS: SENNOSIDES/DOCUSATE SODIUM TAB PO SCH ×2 (08:11→21:10)
[2019-03-09] MEDS: PANTOPRAZOLE SODIUM 40 MG TAB PO SCH (08:12)
--- NOTE | 2019-03-09 08:16 | SOAPPROG ---
SOAP Progress Note Assessment/Plan: POD #3: emergent CABGx4 (AMADOR-ramus, YONG-LAD, LRA-PL circ, SVG-RCA), AtriClip BRITTANY, open L radial artery harvest, EVH left thigh saphenous vein Unstable angina, critical CAD s/p emergent CABGx4 - AL/FC/CTs out - BB/ASA/statin for secondary prevention - Adjunctive CCB x 90 days for RA graft spasm prophylaxis Acute post-op blood loss anemia - Stable, no transfusions needed DON secondary to morbid obesity - CPAP ordered DVT prophylaxis - SCDs/heparin SQ Disposition - PCU - Plan for home vs SNF Sunday Subjective: Pain dramatically reduced with removal of chest tubes. Hopeful to be discharged home. Objective: Vital Signs Temp Pulse Resp BP Pulse Ox 37.0 C 88 20 144/87 H 97 03/09/19 07:09 03/09/19 07:09 03/09/19 07:09 03/09/19 07:09 03/09/19 07:09 Laboratory Results 03/09/19 05:30 03/08/19 04:10 03/08/19 03/09/19 03/10/19 05:59 05:59 05:59 Intake Total 2160 1150 Output Total 945 2225 Balance 1215 -1075 PT 13.3 SEC (12.0-15.0) 03/05/19 19:08 INR 1.05 (0.83-1.16) 03/05/19 19:08 Physical Exam - Physical Exam General Appearance: WD/WN, alert, no apparent distress, obese EENT: No scleral icterus (R), No scleral icterus (L) Neck: normal inspection Respiratory: No respiratory distress Cardiac/Chest: regular rate, rhythm Abdomen: non-tender, soft, No distended Skin: normal color, warm/dry Extremities: pedal edema Neuro/Psych: no motor/sensory deficits, alert, normal mood/affect, oriented x 3 ICD10 Worksheet Patient Problems: Problems Problem Status Onset Abnormal EKG Acute Acute blood loss anemia Acute Chest pain Acute S/P CABG x 4 Acute S/P left atrial appendage ligation Acute
--- NOTE | 2019-03-09 09:13 | ASMTCMCOM ---
CM Note CM Note Notes: Per cardiothoracic surg, patient will likely d/c Tues - to home or SNF. PT recommendation as of 03/08 is SNF. I met with patient to discuss, and he is open to whatever the recommendation is. He hopes to go home, however. I gave him a Senior Blue Book to being reviewing SNF. Case Management will follow. Date Signed: 03/09/2019 09:12 AM Electronically Signed By:Taniya Israel RN
[2019-03-09] MEDS ORDERED: FUROSEMIDE 20 MG/2 ML VIAL IVP ONE (09:31)
[2019-03-10] MEDS: HEPARIN 5,000 UNIT/0.5 ML INJ SC SCH ×2 (05:47→14:28)
--- NOTE | 2019-03-10 07:09 | SOAPPROG ---
SOAP Progress Note Assessment/Plan: POD #4: emergent CABGx4 (AMADOR-ramus, YONG-LAD, LRA-PL circ, SVG-RCA), AtriClip BRITTANY, open L radial artery harvest, EVH left thigh saphenous vein Unstable angina, critical CAD s/p emergent CABGx4 - AL/FC/CTs out - BB/ASA/statin for secondary prevention - Adjunctive CCB x 90 days for RA graft spasm prophylaxis Acute post-op blood loss anemia - Stable, no transfusions needed DON secondary to morbid obesity - CPAP ordered DVT prophylaxis - SCDs/heparin SQ Disposition - PCU - SNF Sunday Subjective: No complaints. Pain well-controlled. Denies SOB. Objective: Vital Signs Temp Pulse Resp BP Pulse Ox 36.6 C 81 15 123/80 H 93 03/10/19 04:00 03/10/19 04:00 03/10/19 04:00 03/10/19 04:00 03/10/19 04:00 Laboratory Results 03/09/19 05:30 03/08/19 04:10 03/09/19 03/10/19 03/11/19 05:59 05:59 05:59 Intake Total 1150 1588 Output Total 2225 1300 Balance -1075 288 PT 13.3 SEC (12.0-15.0) 03/05/19 19:08 INR 1.05 (0.83-1.16) 03/05/19 19:08 Physical Exam - Physical Exam General Appearance: WD/WN, alert, no apparent distress, obese EENT: No scleral icterus (R), No scleral icterus (L) Neck: normal inspection Respiratory: respiratory distress Cardiac/Chest: regular rate, rhythm Abdomen: non-tender, soft, No distended Skin: normal color, warm/dry Extremities: pedal edema Neuro/Psych: no motor/sensory deficits, alert, normal mood/affect, oriented x 3 ICD10 Worksheet Patient Problems: Problems Problem Status Onset Abnormal EKG Acute Acute blood loss anemia Acute Chest pain Acute S/P CABG x 4 Acute S/P left atrial appendage ligation Acute
--- NOTE | 2019-03-10 07:35 | POSTANESTH ---
Post Anesthetic Evaluation Cardiovascular Status: Normal, Stable Respiratory Status: Tx Decrease in SpO2 Level of Consciousness/Mental Status: Can Participate in Eval Pain Control: Adequate, Prn Tx Ordered Nausea/Vomiting Control: Adequate, Prn Tx Ordered Complications Possibly Related to Anesthesia: None Noted
[2019-03-10] MEDS: SENNOSIDES/DOCUSATE SODIUM TAB PO SCH (08:47)
[2019-03-10] MEDS ORDERED: FUROSEMIDE 80 MG TAB PO SCH (09:00)
[2019-03-10] MEDS ORDERED: POTASSIUM CL 20 MEQ TAB PO SCH (09:00)
[2019-03-10] MEDS: ASPIRIN 81 MG CHEWABLE TAB PO SCH (09:17)
[2019-03-10] MEDS: METOPROLOL TARTRATE 25 MG TAB PO SCH (09:18)
[2019-03-10] MEDS: PANTOPRAZOLE SODIUM 40 MG TAB PO SCH (09:19)
--- NOTE | 2019-03-10 10:04 | PDDCSUM ---
Discharge Summary Discharge Summary: DATE OF ADMISSION: 03/05/19 DATE OF DISCHARGE: 03/10/19 [facility] ACTIVITY: Instructed on sternal precautions, activity restrictions, and problems to call [employer]. ADMISSION DIAGNOSES: NSTEMI Unstable angina Morbid obesity DON on CPAP Hypertension Hyperlipidemia Prediabetes DISCHARGE DIAGNOSES: As above, plus Critical 3-vessel coronary artery disease with a preserved left ventricular function S/p emergent CABGx4, EVH-LLE, ORH-left, BRITTANY Acute expected blood loss anemia DIAGNOSTIC/PROCEDURES PERFORMED: 03/06/19 ([facility]) Transthoracic echocardiography EF 60-65%, mild LVH, no valve pathology 03/06/19 ([facility]) Emergent left heart catheterization (final report is pending in EHR) 03/06/19 ([facility]) Emergent coronary bypass grafting x4 with left internal mammary artery to the ramus, right internal mammary artery to the LAD, left radial artery to the posterior lateral circumflex, and saphenous vein graft to the RCA. Ligation of left atrial appendage with #40 atrial clip. Harvesting of left radial artery with a Harmonic scalpel. Endoscopic vein harvest. HISTORY OF PRESENT ILLNESS: The patient is a 68M w history of prediabetes, hypertension, hyperlipidemia, DON , and morbid obesity who has been having exertional chest pressure for the past few months. These symptoms have worsened in severity and frequency. Associated symptoms include SOB, fatigue, diaphoresis, and nausea. His PCP instructed him to go to the ER. Troponin was negative 0.01 and EKG was sinus rhythm, leftward axis, with inverted T-waves in the anterior leads. He was admitted to the PCU for overnight and started on a heparin drip. He continued to have mild midsternal pain and given his significant risk factors, he went for cardiac catheterization which demonstrated severe 3V disease including LM with a preserved EF. HOSPITAL COURSE BY PROBLEM LIST: Unstable angina, NSTEMI, critical CAD s/p emergent CABGx4 - Preserved EF pre- operatively. BB/ASA/statin for secondary prevention. Adjunctive low-dose CCB x 90 days for RA graft spasm prophylaxis. No motor or sensory deficits. Acute post-op blood loss anemia - no transfusions needed. DON secondary to morbid obesity - CPAP restarted in hospital. Respiratory status improved with removal of chest tubes. Prediabetes - preop A1c 5.3%. Sugars WNL in hospital. No therapy recommended by Hospital Medicine. PERTINENT DISCHARGE CLINICAL INFORMATION: Sternotomy CDI EVH LLE CDI ORD left arm CDI, no sensory or motor function loss HR 79 BP 119/71 SpO2 95% 4L CPAP preop wt 152 kg, discharge wt 153 kg WBC 14 Hgb 13.9 Hct 40.6 Plt 121 Na 135 K 4.1 Cr 0.6 CONSULTANTS: Cardiology, [facility], Hospital Medicine (admitting service, followed for glucose levels) MEDICATIONS ON ADMISSION: Zocor 20 mg PO HS Lisinopril 20 mg PO daily ALLERGIES/SENSITIVITIES: sulfa, silicone DISCHARGE MEDICATIONS: CONTINUE these medications: Simvastatin 20 mg PO HS STOP these medications: Lisinopril 20 mg PO daily NEW medications: Norvasc 2.5 mg PO daily for 90 days (end date 06/04/2019) Tylenol PRN ASA 81 mg PO daily Lasix 80 mg PO daily Klor-Con 40 mEq PO daily [place] 5/325 mg PRN Lopressor 25 mg PO BID Tramadol 50-100 mg PO q4hrs PRN FOLLOW UP APPOINTMENTS: 1. CV surgery: with Dr. Stevenson at [facility] on 03/18/19 9AM. 2. Cardiology, Dr. Lu, as directed 3. PCP, as directed FOLLOW UP TESTING: CXR prior to surgical appointment.
[2019-03-10 11:04] VITALS: BP 108/68
--- NOTE | 2019-03-10 11:32 | ASMTCMCOM ---
CM Note CM Note Notes: CM spoke to MARIMAR Galdamez with [facility] and Elaine RN. Pt is medically stable to d/c today. The recommendation is for pt to go to SNF. Khloe, pts toured SNFs today and have chosen [facility]. Referral to [facility]. [facility] is in the process of getting auth. Pt is unable to dc home because he has multiple stairs in his home. CM to follow. Plan: [facility] Date Signed: 03/10/2019 11:31 AM Electronically Signed By:CHELA Ling
--- NOTE | 2019-03-10 14:26 | PDIAF ---
- Diagnosis Diagnosis: s/p CABGx4 Code Status: Full Code - Medication Management Discharge Medications: electronically signed and located in the Home Medication List. PICC Care - Routine: N/A - Orders Services needed: Registered Nurse, Certified Senior Systems Administrator, Master Net Software Engineer , Physical Therapy, Occupational Therapy Isolation Type: None Oxygen: 4 LPM Diet Recommendation: cardiac -low fat low salt, fluid restriction (use comment for amount) (2 liters per day) Diet Texture: Regular Texture Diet, Thin Liquids, Meds Whole w/Liquids Weigh Patient: daily Narvaez: No Additional Instructions: Discharge Instructions: Call [facility] cardiac rehab to enroll in phase 2 classes if not already arranged. Sternal precautions x 4 weeks. Avoid lifting > 10lbs with an outstretched arm. Avoid push/pull activities. No driving until cleared by surgery. Elevate low legs at rest. Avoid prolonged standing or dangling. Cleanse wounds once daily with soap and water. Avoid immersion (pool, hot tub, bath) until fully healed. Leave all wounds open to air. Avoid creams or ointments until fully healed. Log daily vital signs once home: weight, heart rate, blood pressure, and pulse oximetry if on oxygen. Call [employer] for weight gain > 5lbs or worsening leg swelling. Call [employer] for resting heart rate > 120 OR < 50. Call [employer] for systolic blood pressure consistently < 90 or > 150. Ok to use [id number] medications for bowel function or pain. Chest x-ray Instructions: Please obtain a chest xray prior to surgical appointment. Chest x-rays dont require an appointment. Come to the Emergency Room entrance at the [facility] location. Sign in at the computer kiosk in the entryway. You will be given a number and may sit in the waiting area until called. You will be registered and directed to the Imaging desk on the 1st floor. This process can take up to an hour. Make sure you allow enough time before your appointment to have your x-ray taken. - Labs/Radiology Imaging Orders: CXR at [facility] before surgical follow-up - Follow Up Care Current Providers and Referrals: Phu Lu MD [Medical Doctor] - follow up as scheduled Gonzalo Jauregui MD [Medical Doctor] - 03/18/19 9:00 am Vitaly Marmolejo, [Primary Care Provider] - As per Instructions
--- NOTE | 2019-03-10 14:52 | ASDISCHSUM ---
Discharge Information Plan Status:SNF Medically Cleared to Leave:03/10/2019 Discharge Date:03/10/2019 CM D/C Disposition: ADT D/C Disposition:Intermediate Facility Projected Discharge Date:03/10/2019 11:00 AM Transportation at D/C: Discharge Delay Reason: Follow-Up Date:03/10/2019 11:00 AM Discharge Slot: Final Diagnosis: Placement Information Referral Type:*Halfway/SNF Referral ID:[id number] Provider Name:[facility] Address 1:[address] Address 2: City:[place] Selection Factors: State:[place] Patient Contact Information Contact Name:JHONNY Relationship: Address[address] City:[place] Phone: State/Zip Code:[place] [address] Email: Financial Information Financial Class:Medicare Advantage Plans Primary Plan Desc:[facility] [employer] Primary Plan Number:[id number] Secondary Plan Desc: Secondary Plan Number: Assessment Information LACE LACE Length of stay for Answers: 4-6 days current admission Acuity / Level of Answers: Yes Care: Did the patient have an inpatient admission? Comorbidities - select Answers: Other Notes: HTN; HLD; Morbid obesit y all that apply # of Emergency department Answers: 1-2 visits in the last 6 months Score: 9 Date Signed: 03/10/2019 02:49 PM Electronically Signed By:CHELA Ling [facility] CM Progress Note CM Note CM Note Notes: Pt is a 68 y/o man admitted for a CABG. Needs are TBD at this time. CM to follow. Plan: TBD Date Signed: 03/06/2019 11:46 AM Electronically Signed By:CHELA Ling [facility] CM Progress Note CM Note CM Note Notes: Patient had a coronary artery bypass graft x4 today. Most likely will transfer to PCU today. PT/OT have been ordered. CM will follow. Date Signed: 03/07/2019 01:30 PM Electronically Signed By:Shruthi Hussein LCSW [facility] CM Progress Note CM Note CM Note Notes: Per cardiothoracic surg, patient will likely d/c Tues - to home or SNF. PT recommendation as of 03/08 is SNF. I met with patient to discuss, and he is open to whatever the recommendation is. He hopes to go home, however. I gave him a Senior Blue Book to being reviewing SNF. Case Management will follow. Date Signed: 03/09/2019 09:12 AM Electronically Signed By:Taniya Israel RN [facility] CM Progress Note CM Note CM Note Notes: CM spoke to MARIMAR Galdamez with [facility] and DELMER Henry. Pt is medically stable to d/c today. The recommendation is for pt to go to SNF. Khloe, [facility] and [facility]. Referral to [facility]. [facility] is in the process of getting auth. Pt is unable to dc home because he has multiple stairs in his home. CM to follow. Plan: [facility] Date Signed: 03/10/2019 11:31 AM Electronically Signed By:CHELA Ling Case Management Discharge Plan Note Case Management Discharge Discharge Order Complete? Answers: Yes Patient to Obtain Answers: Other Notes: [facility] Medications Transportation Arranged Answers: Other Notes: [facility] w/c transport Transport will Pick (Date 03/10/2019 03:30 PM & Time) EMTALA Complete Answers: No Case Management Transport Answers: No Form Complete Faxed Final Orders Answers: Yes Agency/Facility Transfer Answers: Yes Report Printed & Faxed to Receiving Agency Family Notified Answers: Yes Discharge Comments Notes: [facility] was able to get auth today. DC orders sent to [facility]. DELMER Henry will call to give report. CM available for changes. Plan: [facility] Date Signed: 03/10/2019 02:51 PM Electronically Signed By:CHELA Ling Intervention Information Intervention Type:*IM-Signed Date of Service:03/10/2019 10:48 AM Patient Type:Inpatient Staff Member:Dona Fong Hours: Discipline: Severity: Comment:
--- NOTE | 2019-03-13 11:12 | PQFORM ---
PHYSICIAN QUERY FORM Needs Your Response This query form is being sent to you to assure this patient record is coded properly. Please respond to the question below: [facility]PC QUESTION: Dr Stevenson There is conflicting documentation in the record regarding this patients DX. Progress Notes indicate that NH was Ruled Out but the Discharge Summary states that ptient had a NSTEMI. Please clarify if this patient had a NSTEMI. _x_ Yes __ No __ Other (Please Specify ) __ Unable to determine Thank You Blanca ANTONIO [employer] INSTRUCTIONS FOR RESPONSE: Answer question by clicking on the "Edit Document" button. Move cursor to area below the stars. When complete, hit "Save." Click on the "Sign" button, then click "Sign" again. Type in your PIN and hit "Enter." MTDD
== END 2019-03-10 16:01 | DRG 234 ==
LOC: CED 18:38 → INTOOBSV 19:20 → CEDHOLD 19:20 → F2W 20:55 → OBSVTOIN 03-06 12:54 → F2N 03-06 13:24 → F2W 03-08 11:45
PROVIDERS: ADMIT Thoracic Surgery (Cardiothoracic Vascular Surgery); ATTEND Thoracic Surgery (Cardiothoracic Vascular Surgery)
PROC: 5A1221Z Performance of Cardiac Output, Continuous (ICD-10-PCS; principal; 2019-03-06 12:30)
PROC: 02100Z9 Bypass Coronary Artery, One Artery from Left Internal Mammary, Open Approach (ICD-10-PCS; principal; 2019-03-06 12:30)
PROC: 06BQ4ZZ Excision of Left Saphenous Vein, Percutaneous Endoscopic Approach (ICD-10-PCS; principal; 2019-03-06 12:30)
PROC: 02100Z8 Bypass Coronary Artery, One Artery from Right Internal Mammary, Open Approach (ICD-10-PCS; principal; 2019-03-06 12:30)
PROC: 02100AW Bypass Coronary Artery, One Artery from Aorta with Autologous Arterial Tissue, Open Approach (ICD-10-PCS; principal; 2019-03-06 12:30)
PROC: 03BC0ZZ Excision of Left Radial Artery, Open Approach (ICD-10-PCS; principal; 2019-03-06 12:30)
PROC: 021009W Bypass Coronary Artery, One Artery from Aorta with Autologous Venous Tissue, Open Approach (ICD-10-PCS; principal; 2019-03-06 12:30)
PROC: 02L70CK Occlusion of Left Atrial Appendage with Extraluminal Device, Open Approach (ICD-10-PCS; principal; 2019-03-06 12:30)
PROC: 4A023N7 Measurement of Cardiac Sampling and Pressure, Left Heart, Percutaneous Approach (ICD-10-PCS; 2019-03-06 12:30)
PROC: B2111ZZ Fluoroscopy of Multiple Coronary Arteries using Low Osmolar Contrast (ICD-10-PCS; 2019-03-06 12:30)
PROC: B2151ZZ Fluoroscopy of Left Heart using Low Osmolar Contrast (ICD-10-PCS; 2019-03-06 12:30)
DX: I21.4 Non-ST elevation (NSTEMI) myocardial infarction (principal); D62 Acute posthemorrhagic anemia; R73.03 Prediabetes; G47.33 Obstructive sleep apnea (adult) (pediatric); I10 Essential (primary) hypertension; E66.01 Morbid (severe) obesity due to excess calories; Z68.42 Body mass index [BMI] 45.0-49.9, adult; E78.5 Hyperlipidemia, unspecified; F17.290 Nicotine dependence, other tobacco product, uncomplicated
CPT/HCPCS: 71045-PO; 80053-ER; 82435-PO; 82565-PO; 82607-90; 82947-PO; 83605-ER; 84132-PO; 84295-PO; 84484-ER; 84520-PO; 85014-ER; 85025-QW-ER; 85520-90; 97116-GP; 97162-GP; 97166-GO; 97535-GO; 99285-ER; C1760; C1769; G0378; J0153; J0282; J0690; J1265; J1644; J1815; J1885; J1940; J2001; J2150; J2250; J2260; J2270; J2370; J2440; J2704; J2720; J2930; J3010; J3475; P9041; Q9967

== ENCOUNTER → 2019-03-18 | Outpatient (CLI) | payer OTHER | LOC: FIMAGING 07:59 | PROVIDERS: ATTEND Thoracic Surgery (Cardiothoracic Vascular Surgery) | DX: I51.7 Cardiomegaly (principal); Z95.1 Presence of aortocoronary bypass graft; Z98.890 Other specified postprocedural states ==